=== PATIENT | female | born 2000 | race Caucasian/White ===

== ENCOUNTER 2020-05-27 19:44 | Emergency (ER) | payer SELFPAY ==
[~2020-05-27] VITALS: Ht 157.5 cm; Wt 94.5 kg
[2020-05-27] MEDS ORDERED: IV NORMAL SALINE 1000ML BAG 1,000 ML IV ONE (20:15)
[2020-05-27] MEDS ORDERED: KETOROLAC 15 MG/ML VIAL. IVP ONE (20:15)
[2020-05-27] MEDS ORDERED: PROCHLORPERAZINE 10 MG/2 ML VIAL. IV ONE (20:15)
[2020-05-27] MEDS ORDERED: diphenhydrAMINE 50 MG/ML VIAL IVP ONE (20:15)
--- NOTE | 2020-05-27 20:32 | ED.ADGEN ---
Past Medical History Past Medical History: Asthma, Migraines Past Surgical History: No Surgical History Smoking Status: Never Smoker Alcohol Use: None Drug Use: None General Adult EDM: Chief Complaint: HEADACHE HPI: HPI: Patient is a 19 year old female, accompanied by her significant other, who presents to emergency room with complaints of a headache behind her right eye for the last 2 to 3 hours. Patient reports a history of migraines, she reports photosensitivity and bright streaks of light with this headache. She denies any fever, nausea, vomiting, dizziness, syncope, neck pain, fever, numbness, tingling, or weakness. The patient reports her pain is a 10 out of 10 on pain scale at this time, she has not taken anything for relief of her pain prior to arrival. Review of Systems: Review of Systems: Complete ROS is negative unless otherwise noted in HPI. Current Medications: Current Medications Medications (Trade) Dose Ordered Sig/Gracie Start Time Stop Time Status Last Admin Dose Admin Diphenhydramine HCl (Benadryl) 25 mg 1X ONCE 05/27/20 20:15 05/27/20 20:16 DC 05/27/20 20:27 25 MG Ketorolac Tromethamine (Toradol 15mg Vial) 15 mg 1X ONCE 05/27/20 20:15 05/27/20 20:16 DC 05/27/20 20:30 15 MG Prochlorperazine Edisylate (Compazine) 10 mg 1X ONCE 05/27/20 20:15 05/27/20 20:16 DC 05/27/20 20:26 10 MG Sodium Chloride 1,000 ml @ 1,000 mls/hr 1X ONCE 05/27/20 20:15 05/27/20 21:14 05/27/20 20:26 1,000 MLS/HR Allergies: Allergies: Allergies Coded Allergies Type Severity Reaction Last Updated Verified No Known Drug Allergies 05/27/20 No Physical Exam: PE: See Above Constitutional: Well developed, well nourished, no acute distress, non-toxic appearance. [] HENT: Normocephalic, atraumatic, bilateral external ears normal, nose normal. [] Eyes: PERRLA, EOMI, conjunctiva normal, no discharge. [] Neck: Normal range of motion, no stridor. [] Cardiovascular:Heart rate regular rhythm Lungs & Thorax: Respirations even and unlabored, no retractions, no respiratory distress Skin: Warm, dry, no erythema, no rash. [] Extremities: No cyanosis, ROM intact, no edema. [] Neurologic: Alert and oriented X 3, normal motor, normal sensation, no focal deficits noted. [] Psychologic: Affect normal, judgement normal, mood normal. [] Current Patient Data: Vital Signs: Vital Signs Date Time Temp Pulse Resp B/P (MAP) Pulse Ox O2 Delivery O2 Flow Rate FiO2 05/27/20 19:54 98.3 64 16 115/60 (78) 98 Room Air 98.3 EKG: EKG: [] Heart Score: Risk Factors: Risk Factors: DM, Current or recent (<one month) smoker, HTN, HLP, family history of CAD, obesity. Risk Scores: Score 0 - 3: 2.5% MACE over next 6 weeks - Discharge Home Score 4 - 6: 20.3% MACE over next 6 weeks - Admit for Clinical Observation Score 7 - 10: 72.7% MACE over next 6 weeks - Early Invasive Strategies Radiology/Procedures: Radiology/Procedures: [] Course & Med Decision Making: Course & Med Decision Making Pertinent Labs and Imaging studies reviewed. (See chart for details) 19-year-old female presented to the emergency room with complaints of a headache behind her right eye. The patient had a history of migraines and was given a liter of normal saline, 10 mg of IV Compazine, 15 mg of IV Toradol, and 25 mg of IV Benadryl. She reported that her pain decreased to a 4/10 after these medications and reported that she would like to go home. Prescription was written for Fioricet to take as needed headaches. Recommended that patient follows up with her primary care doctor in the next 1 to 2 days for reevaluation, return to the ER symptoms worsen. Patient verbalized an understanding of home care, medications, follow-up, and return to ED instructions and was in agreement with the plan of care. [] Dragon Disclaimer: Dragon Disclaimer: This electronic medical record was generated, in whole or in part, using a voice recognition dictation system. Departure Departure Impression: Primary Impression: Migraine headache Disposition: 01 DC HOME SELF CARE/HOMELESS Condition: STABLE Referrals: HAMMAD INIGUEZ (PCP) Patient Instructions: Migraine Headache, [id number] Additional Instructions: Fill the prescription and use it as directed. Home to rest in a cool, dark, room. Limit your screen exposure. Follow-up with your primary care doctor in 1 to 2 days, return to the ER if your symptoms worsen. Scripts Butalb/Acetaminophen/Caffeine ([id number] [id number]) 1 Each Tablet 1-2 EACH PO Q4HRS PRN for PAIN MDD 6 tabs for 3 Days, #18 TAB 0 Refills Prov: KENISHA BROWN APRN 05/27/20 Problem Qualifiers Primary Impression: Migraine headache Migraine type: unspecified Status migrainosus presence: without status migrainosus Intractability: not intractable Qualified Codes: G43.909 - Migraine, unspecified, not intractable, without status migrainosus KENISHA BROWN APRN May 27, 2020 20:32
[2020-05-27] MEDS ORDERED: BUTA1TAB23 PO (20:46)
[2020-05-27 20:53] VITALS: BP 98/55
[2020-05-27 21:45] LABS: U PREG PATIENT NEGATIVE (NEG)
== END 2020-05-27 21:12 | disposition home or self-care (01) ==
LOC: ER 19:44
DX: G43.909 Migraine, unspecified, not intractable, without status migrainosus (principal); L56.8 Other specified acute skin changes due to ultraviolet radiation; R20.2 Paresthesia of skin; J45.909 Unspecified asthma, uncomplicated
CPT/HCPCS: 81025; 96361; 96374; 96375; 99284; J0780; J1200; J1885; J7030